=== PATIENT | female | born 1980 | race Two or more races ===

== ENCOUNTER 2022-05-17 20:25 | Emergency (ER) | payer MEDICAID, OTHER ==
[~2022-05-17] VITALS: Ht 157.5 cm; Wt 70.0 kg
[2022-05-17 22:24] LABS: Basophils # (auto) 0.1 10 ^3/uL (0-0.2); Basophils % (auto) 1.1 % (0.0-2.0); Eosinophils # (auto) 0.2 10 ^3/uL (0-0.8); Eosinophils % (auto) 4.5 % (0.0-7.0); Hematocrit 34.1 % (36.0-46.0); Hemoglobin 11.8 g/dL (12.2-16.2); Lymphocytes % (auto) 17.5 % (10.0-50.0); Mean Corpuscular Hemoglobin 31.7 pg (28.0-32.0); Mean Corpuscular Hgb Conc. 34.5 g/dL (32.0-36.0); Monocytes # (auto) 0.5 10 ^3/uL (0-1.3); Monocytes % (auto) 8.8 % (0.0-12.0); Neutrophils # (auto) 3.7 10 ^3/uL (1.6-8.6); Neutrophils % (auto) 68.1 % (37.0-80.0); Nucleated Red Blood Cells % 0.1 %; Red Blood Cells 3.71 10^6/uL (4.0-5.20); Red Cell Distribution Width 13.9 % (11.8-14.3); White Blood Cell 5.5 10^3/uL (4.4-10.8)
[2022-05-17 22:42] LABS: Albumin 4.2 g/dL (3.4-5.0); Calcium 9.1 mg/dL (8.5-10.1); INR 0.97 (0.9-1.15); Partial Thromboplastin Time 25.3 sec (24.6-33.4); Potassium 4.2 mmol/L (3.5-5.1)
[2022-05-17 22:46] LABS: BUN/Creatinine Ratio 5.3; Total Protein 6.8 g/dL (6.4-8.2)
[2022-05-18] MEDS ORDERED: ONDANSETRON HCL 4 MG/2 ML VIAL IV ONE (00:15)
[2022-05-18] MEDS ORDERED: amLODIPine BESYLATE 5 MG TAB PO ONE (00:15)
[2022-05-18] MEDS ORDERED: HYDROmorphone HCL 2 MG/ML VL/or syr IV ONE (00:15)
[2022-05-18 04:35] VITALS: BP 169/88
[2022-05-18] MEDS ORDERED: PERCOT PO (04:36)
[2022-05-18] MEDS ORDERED: HYDR25TA5 GT (04:36)
== END 2022-05-18 04:40 | disposition home or self-care (01) ==
LOC: ER 20:25
DX: R51.9 Headache, unspecified (principal); I12.0 Hypertensive chronic kidney disease with stage 5 chronic kidney disease or end stage renal disease; N18.6 End stage renal disease; R07.89 Other chest pain; Z99.2 Dependence on renal dialysis
CPT/HCPCS: 36415; 70450; 71045; 80053; 83880; 84484; 85025; 85379; 85610; 85730; 93005; 96374; 96375; 99285; J1170; J2405